=== PATIENT | male | born 1995 | race Caucasian/White ===

== ENCOUNTER 2018-09-09 17:25 | Emergency (ER) | payer BC ==
[2018-09-09 18:02] VITALS: BP 114/83
--- NOTE | 2018-09-09 18:42 | UC ---
Abdominal Pain Male HPI - HPI Summary HPI Summary: pt presents with c/o mid upper gastric pain that began after " a day of drinking and swimming ([employer] [place]). Pt states that the pain began the day after "partying" and worsened to the point where his "girlfriend made me go to the ER". Pt sates he received IV fluids, GI cocktail and "lots of blood work". Pt then began taking omeprazole daily and also taking mylanta prior to every meal. Pt states that his symptoms have only improved a "little bit" . He states he has had this happen before and that beginning OTC GERD medication "usually fixes it in a few days" - History of Current Complaint Chief Complaint: UCAbdominalPain Stated Complaint: ABDOMINAL PAIN Time Seen by Provider: 09/09/18 18:06 Hx Obtained From: Patient Onset/Duration: Sudden Onset, Lasting Days, Still Present Timing: Constant Severity Initially: Moderate Severity Currently: Mild Pain Intensity: 6 Location: Discrete At: RUQ, Epigastric Radiates: No Character: Aching, Burning, Colicy, Dull Aggravating Factor(s): Movement Alleviating Factor(s): Nothing Associated Signs And Symptoms: Positive: Vomiting - once last - Risk Factors Testicular Torsion: Negative Cardiac Risk Factors: Negative - Allergies/Home Medications Allergies/Adverse Reactions: Allergies Allergy/AdvReac Type Severity Reaction Status Date / Time No Known Allergies Allergy Verified 09/09/18 18:01 Home Medications: Home Medications Al Hydrox/Mg Hydrox/Cristi BULK* [Mylanta - BULK BOT*] 1 jensen PO AC 09/09/18 [ History Confirmed 09/09/18] Omeprazole 20 mg PO DAILY 09/09/18 [History Confirmed 09/09/18] PMH/Surg Hx/FS Hx/Imm Hx Previously Healthy: Yes GI/ History: Gastroesophageal Reflux - Surgical History Surgery Procedure, Year, and Place: appy, hernia - Family History Known Family History: Positive: Cardiac Disease - Social History Occupation: Employed Full-time Lives: With Family Alcohol Use: Occasionally Substance Use Type: None Smoking Status (MU): Never Smoked Tobacco Have You Smoked in the Last Year: No Review of Systems All Other Systems Reviewed And Are Negative: Yes Constitutional: Positive: Negative Skin: Positive: Negative Eyes: Positive: Negative ENT: Positive: Negative Respiratory: Positive: Negative Cardiovascular: Positive: Negative Gastrointestinal: Positive: Abdominal Pain, Vomiting - X1 on 09/04/18 Genitourinary: Positive: Negative Motor: Positive: Negative Neurovascular: Positive: Negative Musculoskeletal: Positive: Negative Neurological: Positive: Negative Psychological: Positive: Negative Is Patient Immunocompromised?: No Physical Exam Triage Information Reviewed: Yes Appearance: Well-Appearing Vital Signs: Initial Vital Signs Temp 98.6 F 09/09/18 17:53 Pulse 62 09/09/18 17:53 Resp 16 09/09/18 17:53 BP 114/83 09/09/18 17:53 Pulse Ox 97 09/09/18 17:53 Vital Signs Reviewed: Yes Eye Exam: Normal ENT: Positive: Hearing grossly normal Dental Exam: Normal Neck exam: Normal Respiratory Exam: Normal Cardiovascular Exam: Normal Abdominal Exam: Other - epigastric tenderness, RUQ tenderness Musculoskeletal Exam: Normal Neurological Exam: Normal Psychological Exam: Normal Skin Exam: Normal Abd Pain Male Course/Dx - Course Course Of Treatment: Pt states he just moved here from [place] and has appointment with new PCP on 09/23/18. WE discussed changing to nexium and to resume regular diet. - Differential Dx/Clinical Impression Differential Diagnosis/HQI/PQRI: Gall Bladder Disease, Peptic Ulcer Disease Provider Diagnosis: Abdominal pain in male Discharge - Sign-Out/Discharge Documenting (check all that apply): Patient Departure All imaging exams completed and their final reports reviewed: No Studies - Discharge Plan Condition: Stable Disposition: HOME Patient Education Materials: Abdominal Pain (ED) Referrals: [facility] [place] [facility]FERRAL [Outside] - If Needed No Primary Care Phys,NOPCP [Primary Care Provider] - Additional Instructions: As we discussed, please review your concerns with your new PCP. Please consider evaluation for GERD, H. Pylori, gall bladder disease, GI disorders, and dietary sensitivities. - Billing Disposition and Condition Condition: STABLE Disposition: Home
== END 2018-09-09 18:50 | disposition home or self-care (01) ==
LOC: UCCORT 17:25
DX: R10.13 Epigastric pain (principal); R10.11 Right upper quadrant pain
CPT/HCPCS: 99201; G0463